=== PATIENT | female | born 1995 | race Caucasian/White ===

== ENCOUNTER 2021-04-05 09:15 | Emergency (ER) | payer OTHER ==
[~2021-04-05] VITALS: Ht 162.6 cm; Wt 85.4 kg
--- NOTE | 2021-04-05 09:52 | NUR ---
FIRST CONTACT: IGNA[facility] SPOTTING SINCE SAT NIGHT, 7 WKS GEST, LAST MISCARRIAGE SEP 2020, /A1. PT TO ROOM WITH STEADY GAIT. ATTACHED TO MONITORS. VSS. KRUEGER
[2021-04-05 10:22] LABS: MICROSCOPIC AUTO
[2021-04-05 10:53] LABS: ALBUMIN 3.4 g/dL (3.4-5.0); ANION GAP 6 mmol/L (5-15); CALCIUM 9.3 mg/dL (8.5-10.1); CHLORIDE 107 mmol/L (98-107)
--- NOTE | 2021-04-05 11:06 | NUR ---
PT BACK FROM US
[2021-04-05 11:08] LABS: BASOPHILS % (AUTO) 1 % (0-1); EOSINOPHILS % (AUTO) 1 % (1-7); LYMPHOCYTES % (AUTO) 20 % (22-44); MEAN CORPUSCULAR HEMOGLOBIN 24.8 pg (27.0-34.8); MEAN CORPUSCULAR HGB CONC 32.1 g/dL (32.4-35.8); MEAN PLATELET VOLUME 8.3 fL (7.4-10.4); MONOCYTES % (AUTO) 5 % (2-9); NEUTROPHILS % (AUTO) 74 % (42-75); PLATELET COUNT 333 x10^3/uL (130-400); RED BLOOD COUNT 4.89 x10^6/uL (3.82-5.3); RED CELL DISTRIBUTION WIDTH 18.6 % (9.6-15.2)
[2021-04-05 11:14] LABS: CREATININE 0.56 mg/dL (0.55-1.02)
--- NOTE | 2021-04-05 11:33 | NUR ---
PT RESTING IN BED. VSS. NADN. UP FOR RECHECK
[2021-04-05 12:14] VITALS: BP 120/87
--- NOTE | 2021-04-05 12:19 | NUR ---
Patient given discharge instructions and they have confirmed that they understand the instructions. Patient ambulatory with steady gait. NAD, all questions answered appropriately, denies additional needs at this time. No personal belongings left in room after discharge.
== END 2021-04-05 12:28 | disposition home or self-care (01) ==
LOC: ED 12:21
DX: O20.0 Threatened abortion (principal); Z3A.01 Less than 8 weeks gestation of pregnancy
CPT/HCPCS: 36415; 76801; 80048; 81001; 82040; 84702; 85025; 86901; 87086; 99284